=== PATIENT | male | born 1955 | race Caucasian/White ===

== ENCOUNTER 2020-10-16 13:28 | Emergency (ER) | payer BC ==
[~2020-10-16] VITALS: Ht 177.8 cm; Wt 83.2 kg
[2020-10-16 13:48] VITALS: TEMP 98
[2020-10-16] MEDS ORDERED: PRINIVIL10 MG PO (14:24)
[2020-10-16] MEDS ORDERED: VITAMIN B12 681 TAB PO (14:24)
[2020-10-16] MEDS ORDERED: TENORMIN 2525 MG/TAB PO (14:24)
[2020-10-16] MEDS ORDERED: XYZAL5 MG PO (14:25)
[2020-10-16] MEDS ORDERED: BENADRYL25 M2 PO (14:25)
[2020-10-16] MEDS ORDERED: ATARAX 25MG25 MG/TAB PO (14:26)
[2020-10-16 14:45] LABS: BASO % 0.3 % (0.0-2.0); EOS # 0.4 (0.0-0.7); EOS % 4.1 % (0-4.0); GRAN # 8.2 (1.4-6.5); GRAN % 76.5 % (42.2-75.2); HEMATOCRIT 38.3 % (42.0-52.0); HEMOGLOBIN 12.8 g/dl (13.5-18.0); LYMPH % 8.9 % (20.0-51.0); MEAN CELL VOLUME 104 fl (80.0-100.0); MEAN CORPUSCULAR HEMOGLOBIN 35 pg (27.0-31.0); MEAN CORPUSCULAR HGB CONC 33 g/dl (33.0-37.0); MEAN PLATELET VOLUME 8.6 fl (7.4-10.4); MONO # 1.1 (0.1-0.6); MONO % 9.8 % (1.7-9.3); PLATELET COUNT 340 K/mm3 (130-400); RED BLOOD COUNT 3.68 M/mm3 (4.20-5.60); REDCELL DISTRIBUTION WIDTH-CV 13.6 % (11.5-14.5)
[2020-10-16 14:55] LABS: ALBUMIN 4.2 gm/dL (3.5-5.0); BILIRUBIN,TOTAL 0.5 mg/dL (0.0-1.0); C-REACTIVE PROTEIN 5.3 mg/dL (0.0-0.9); CALCIUM 9.5 mg/dL (8.4-10.2); CREATININE, serum 0.8 (0.66-1.25); POTASSIUM 4.5 mmol/L (3.4-5.0); TOTAL PROTEIN 7.6 gm/dL (6.4-8.2)
[2020-10-16 15:01] LABS: COLLECTION METHOD CLEAN CATCH
[2020-10-16 15:12] LABS: PH 6 (5-8); SQUAMOUS EPITHELIAL None Seen /hpf; URINE APPEARANCE Clear; URINE BACTERIA None Seen /hpf; URINE BILIRUBIN Negative (NEGATIVE); URINE BLOOD Negative (NEGATIVE); URINE COLOR Yellow; URINE GLUCOSE Negative (NEGATIVE); URINE KETONE Negative (NEGATIVE); URINE LEUKOCYTE ESTERASE Negative (NEGATIVE); URINE NITRATE Negative (NEGATIVE); URINE PROTEIN(semi-quant) Negative (NEGATIVE); URINE RBC 0-2 /hpf; URINE UROBILINOGEN Negative (NEGATIVE)
[2020-10-16 18:31] VITALS: BP 114/87; PULSE 88
== END 2020-10-16 18:30 | disposition short-term general hospital (02) ==
LOC: COL.ER 13:28
PROVIDERS: Family Medicine
DX: G93.89 Other specified disorders of brain (principal); F17.210 Nicotine dependence, cigarettes, uncomplicated; Z88.1 Allergy status to other antibiotic agents; Z85.118 Personal history of other malignant neoplasm of bronchus and lung
CPT/HCPCS: J1953; J7030

== ENCOUNTER 2021-02-22 17:39 | Emergency (ER) | payer BC ==
[~2021-02-22] VITALS: Ht 177.8 cm; Wt 74.5 kg
[~2021-02-22 17:39] MED LIST: ATARAX 25MG25 MG/TAB PO; BENADRYL25 M2 PO; PRINIVIL10 MG PO; TENORMIN 2525 MG/TAB PO; VITAMIN B12 681 TAB PO; XYZAL5 MG PO
[2021-02-22 17:48] VITALS: TEMP 98.6
[2021-02-22 18:40] LABS: BASO % 0.7 % (0.0-2.0); EOS # 0.1 (0.0-0.7); EOS % 1.5 % (0-4.0); GRAN # 4.5 (1.4-6.5); LYMPH # 0.6 (1.2-3.4); MEAN CELL VOLUME 101 fl (80.0-100.0); MEAN CORPUSCULAR HEMOGLOBIN 34 pg (27.0-31.0); MEAN CORPUSCULAR HGB CONC 34 g/dl (33.0-37.0); MEAN PLATELET VOLUME 10.5 fl (7.4-10.4); MONO # 0.2 (0.1-0.6); MONO % 3.2 % (1.7-9.3); PLATELET COUNT 107 K/mm3 (130-400); RED BLOOD COUNT 2.94 M/mm3 (4.20-5.60); REDCELL DISTRIBUTION WIDTH-CV 15.4 % (11.5-14.5)
[2021-02-22 18:41] LABS: HEMATOCRIT 29.7 % (42.0-52.0)
[2021-02-22 18:48] LABS: ALBUMIN 3.8 gm/dL (3.5-5.0); BILIRUBIN,TOTAL 0.6 mg/dL (0.0-1.0); C-REACTIVE PROTEIN 2.7 mg/dL (0.0-0.9); CALCIUM 9.4 mg/dL (8.4-10.2); CREATININE, serum 0.74 (0.66-1.25); TOTAL PROTEIN 7.1 gm/dL (6.4-8.2)
[2021-02-22 20:51] LABS: COLLECTION METHOD CLEAN CATCH
[2021-02-22 21:04] LABS: MUCOUS Present /lpf; PH 6 (5-8); SQUAMOUS EPITHELIAL None Seen /hpf; URINE APPEARANCE Clear; URINE BACTERIA None Seen /hpf; URINE BILIRUBIN Negative (NEGATIVE); URINE BLOOD Negative (NEGATIVE); URINE COLOR Yellow; URINE GLUCOSE Negative (NEGATIVE); URINE KETONE Trace (NEGATIVE); URINE LEUKOCYTE ESTERASE Negative (NEGATIVE); URINE NITRATE Negative (NEGATIVE); URINE PROTEIN(semi-quant) Negative (NEGATIVE); URINE RBC None Seen /hpf
[2021-02-22 21:20] VITALS: BP 100/77; PULSE 90
== END 2021-02-22 21:21 | disposition home or self-care (01) ==
LOC: COL.ER 17:39
PROVIDERS: Family Medicine
DX: C34.30 Malignant neoplasm of lower lobe, unspecified bronchus or lung (principal); C79.31 Secondary malignant neoplasm of brain; F17.210 Nicotine dependence, cigarettes, uncomplicated
CPT/HCPCS: C9113; J2405; J3411; J7030

== ENCOUNTER → 2021-04-16 | Outpatient (CLI) | payer MEDICARE | LOC: COL.RAD 14:44 | DX: C34.90 Malignant neoplasm of unspecified part of unspecified bronchus or lung (principal); J18.1 Lobar pneumonia, unspecified organism | CPT/HCPCS: Q9967 ==

== ENCOUNTER → 2021-04-17 | Outpatient (CLI) | payer MEDICARE | LOC: COL.RAD 12:46 | DX: C34.90 Malignant neoplasm of unspecified part of unspecified bronchus or lung (principal); C79.31 Secondary malignant neoplasm of brain; Z98.890 Other specified postprocedural states | CPT/HCPCS: A9585 ==